=== PATIENT | female | born 1965 | race Caucasian/White ===

== ENCOUNTER → 2016-09-24 | Outpatient (CLI) | payer MEDICARE, OTHER | LOC: OPSV 09:26 | DX: R30.0 Dysuria (principal) | CPT/HCPCS: 87077; 87086; 87186 ==

== ENCOUNTER 2016-10-22 12:47 | Emergency (ER) | payer MEDICARE, OTHER | END 2016-10-22 15:30 | disposition home or self-care (01) | LOC: ER1 12:47 | DX: L89.322 Pressure ulcer of left buttock, stage 2 (principal); L89.312 Pressure ulcer of right buttock, stage 2; E11.9 Type 2 diabetes mellitus without complications; G80.9 Cerebral palsy, unspecified; M41.9 Scoliosis, unspecified; Z99.3 Dependence on wheelchair | CPT/HCPCS: 99283 ==

== ENCOUNTER → 2016-10-23 | Outpatient (CLI) | payer MEDICARE, OTHER | LOC: OPSV 16:00 | DX: L89.152 Pressure ulcer of sacral region, stage 2 (principal); G80.9 Cerebral palsy, unspecified; E11.9 Type 2 diabetes mellitus without complications; G47.33 Obstructive sleep apnea (adult) (pediatric); N20.0 Calculus of kidney; E53.8 Deficiency of other specified B group vitamins; T23.201A Burn of second degree of right hand, unspecified site, initial encounter | CPT/HCPCS: G0463 ==

== ENCOUNTER → 2016-10-27 | Outpatient (CLI) | payer MEDICARE, OTHER | LOC: OPSV 11:55 | DX: M86.9 Osteomyelitis, unspecified (principal) | CPT/HCPCS: G0463 ==

== ENCOUNTER → 2016-10-29 | Outpatient (CLI) | payer MEDICARE, OTHER | LOC: OPSV 12:00 | DX: Z48.00 Encounter for change or removal of nonsurgical wound dressing (principal); L89.152 Pressure ulcer of sacral region, stage 2 | CPT/HCPCS: G0463 ==

== ENCOUNTER → 2016-10-31 | Outpatient (CLI) | payer MEDICARE, OTHER | LOC: OPSV 12:00 | DX: Z48.00 Encounter for change or removal of nonsurgical wound dressing (principal); L89.152 Pressure ulcer of sacral region, stage 2 | CPT/HCPCS: G0463 ==

== ENCOUNTER → 2016-11-03 | Outpatient (CLI) | payer MEDICARE, OTHER | LOC: OPSV 11:59 | DX: L89.152 Pressure ulcer of sacral region, stage 2 (principal) | CPT/HCPCS: G0463 ==

== ENCOUNTER → 2016-11-05 | Outpatient (CLI) | payer MEDICARE, OTHER | LOC: OPSV 11:13 | DX: L89.152 Pressure ulcer of sacral region, stage 2 (principal); G80.9 Cerebral palsy, unspecified; G47.33 Obstructive sleep apnea (adult) (pediatric); N20.0 Calculus of kidney; E53.8 Deficiency of other specified B group vitamins; M81.0 Age-related osteoporosis without current pathological fracture; T23.201A Burn of second degree of right hand, unspecified site, initial encounter | CPT/HCPCS: G0463 ==

== ENCOUNTER → 2016-11-07 | Outpatient (CLI) | payer MEDICARE, OTHER ==
[2016-11-07 10:01] LABS: RED BLOOD COUNT 5.11 M/UL (4.00-5.10); WHITE BLOOD COUNT 5.4 K/UL (4.5-11.0)
[2016-11-07 10:27] LABS: BUN/CREATININE RATIO 32 (0-10)
== END ==
LOC: OPSV 08:24
PROVIDERS: Nurse Practitioner Primary Care
DX: M81.0 Age-related osteoporosis without current pathological fracture (principal); E11.9 Type 2 diabetes mellitus without complications
CPT/HCPCS: 36415; 80053; 80061; 83036; 84443; 85025; G0463

== ENCOUNTER → 2016-11-10 | Outpatient (CLI) | payer MEDICARE, OTHER | LOC: OPSV 11:48 | DX: Z48.00 Encounter for change or removal of nonsurgical wound dressing (principal); L89.152 Pressure ulcer of sacral region, stage 2 | CPT/HCPCS: G0463 ==

== ENCOUNTER → 2016-11-12 | Outpatient (CLI) | payer MEDICARE, OTHER | LOC: OPSV 12:00 | DX: L89.152 Pressure ulcer of sacral region, stage 2 (principal); G80.9 Cerebral palsy, unspecified; E11.9 Type 2 diabetes mellitus without complications; J45.909 Unspecified asthma, uncomplicated; R32 Unspecified urinary incontinence; G47.33 Obstructive sleep apnea (adult) (pediatric); E53.8 Deficiency of other specified B group vitamins; M81.0 Age-related osteoporosis without current pathological fracture; T23.201A Burn of second degree of right hand, unspecified site, initial encounter | CPT/HCPCS: G0463 ==

== ENCOUNTER → 2016-11-14 | Outpatient (CLI) | payer MEDICARE, OTHER | LOC: OPSV 12:00 | DX: L89.152 Pressure ulcer of sacral region, stage 2 (principal) | CPT/HCPCS: G0463 ==

== ENCOUNTER → 2016-11-17 | Outpatient (CLI) | payer MEDICARE, OTHER | LOC: OPSV 12:00 | DX: B38.0 Acute pulmonary coccidioidomycosis (principal) | CPT/HCPCS: 87077; 87086; 87186; G0463 ==

== ENCOUNTER 2016-12-01 11:35 | Emergency (ER) | payer MEDICARE, OTHER ==
[2016-12-01 13:21] LABS: RED BLOOD COUNT 5.43 M/UL (4.00-5.10); WHITE BLOOD COUNT 12.4 K/UL (4.5-11.0)
[2016-12-01 13:52] LABS: BUN/CREATININE RATIO 34 (0-10)
== END 2016-12-01 17:18 | disposition home or self-care (01) ==
LOC: ER1 11:35
PROVIDERS: Physician Assistant
DX: N39.0 Urinary tract infection, site not specified (principal); N20.0 Calculus of kidney; E11.9 Type 2 diabetes mellitus without complications; E78.00 Pure hypercholesterolemia, unspecified; G80.9 Cerebral palsy, unspecified; Z88.2 Allergy status to sulfonamides; Z88.6 Allergy status to analgesic agent; Z88.8 Allergy status to other drugs, medicaments and biological substances; Z79.899 Other long term (current) drug therapy; Z79.84 Long term (current) use of oral hypoglycemic drugs
CPT/HCPCS: 36415; 71010; 80053; 81001; 82550; 82553; 82962; 83690; 83874; 84484; 85025; 93005; 96361; 96374; 96375; 96376; 99284; J2270; J2405

== ENCOUNTER 2016-12-02 10:24 | Emergency (ER) | payer MEDICARE, OTHER | END 2016-12-02 14:10 | disposition home or self-care (01) | LOC: ER1 10:24 | DX: L89.302 Pressure ulcer of unspecified buttock, stage 2 (principal); F41.9 Anxiety disorder, unspecified; F32.9 Major depressive disorder, single episode, unspecified; K21.9 Gastro-esophageal reflux disease without esophagitis; E11.9 Type 2 diabetes mellitus without complications; Z88.2 Allergy status to sulfonamides; Z88.6 Allergy status to analgesic agent; Z88.8 Allergy status to other drugs, medicaments and biological substances; Z79.899 Other long term (current) drug therapy; Z79.84 Long term (current) use of oral hypoglycemic drugs; Z79.82 Long term (current) use of aspirin | CPT/HCPCS: 99282 ==

== ENCOUNTER → 2016-12-04 | Outpatient (CLI) | payer MEDICARE, OTHER | LOC: OPSV 14:00 | DX: L89.152 Pressure ulcer of sacral region, stage 2 (principal); E11.9 Type 2 diabetes mellitus without complications; G80.9 Cerebral palsy, unspecified; J45.909 Unspecified asthma, uncomplicated; G47.33 Obstructive sleep apnea (adult) (pediatric); N20.0 Calculus of kidney; M81.0 Age-related osteoporosis without current pathological fracture; E55.9 Vitamin D deficiency, unspecified | CPT/HCPCS: G0463 ==

== ENCOUNTER → 2016-12-08 | Outpatient (CLI) | payer MEDICARE, OTHER | LOC: OPSV 12:00 | DX: L89.152 Pressure ulcer of sacral region, stage 2 (principal); E11.9 Type 2 diabetes mellitus without complications; J45.909 Unspecified asthma, uncomplicated; T23.201A Burn of second degree of right hand, unspecified site, initial encounter; E55.9 Vitamin D deficiency, unspecified | CPT/HCPCS: G0463 ==

== ENCOUNTER → 2016-12-10 | Outpatient (CLI) | payer MEDICARE, OTHER | LOC: OPSV 12:00 | DX: L89.152 Pressure ulcer of sacral region, stage 2 (principal) | CPT/HCPCS: G0463 ==

== ENCOUNTER → 2016-12-12 | Outpatient (CLI) | payer MEDICARE, OTHER | LOC: OPSV 09:00 | DX: L89.152 Pressure ulcer of sacral region, stage 2 (principal) | CPT/HCPCS: G0463 ==

== ENCOUNTER → 2016-12-15 | Outpatient (CLI) | payer MEDICARE, OTHER | LOC: OPSV 09:00 | DX: L89.152 Pressure ulcer of sacral region, stage 2 (principal) | CPT/HCPCS: G0463 ==

== ENCOUNTER → 2016-12-17 | Outpatient (CLI) | payer MEDICARE, OTHER | LOC: OPSV 11:51 | DX: L89.152 Pressure ulcer of sacral region, stage 2 (principal) | CPT/HCPCS: G0463 ==

== ENCOUNTER → 2017-01-12 | Outpatient (CLI) | payer MEDICARE, OTHER | LOC: OPSV 01-09 12:00 | DX: Z48.00 Encounter for change or removal of nonsurgical wound dressing (principal); L89.152 Pressure ulcer of sacral region, stage 2 | CPT/HCPCS: G0463 ==

== ENCOUNTER → 2017-01-14 | Outpatient (CLI) | payer MEDICARE, OTHER | LOC: OPSV 12:00 | DX: L89.152 Pressure ulcer of sacral region, stage 2 (principal); G80.9 Cerebral palsy, unspecified; E11.9 Type 2 diabetes mellitus without complications; J45.909 Unspecified asthma, uncomplicated; G47.33 Obstructive sleep apnea (adult) (pediatric); N20.0 Calculus of kidney; E53.8 Deficiency of other specified B group vitamins; M81.0 Age-related osteoporosis without current pathological fracture; T23.201A Burn of second degree of right hand, unspecified site, initial encounter; E55.9 Vitamin D deficiency, unspecified | CPT/HCPCS: G0463 ==

== ENCOUNTER → 2017-03-30 | Outpatient (CLI) | payer MEDICARE, OTHER | LOC: OPSV 09:00 | DX: N20.0 Calculus of kidney (principal); L89.152 Pressure ulcer of sacral region, stage 2; E11.9 Type 2 diabetes mellitus without complications; J45.909 Unspecified asthma, uncomplicated; G47.33 Obstructive sleep apnea (adult) (pediatric); E53.8 Deficiency of other specified B group vitamins; M81.0 Age-related osteoporosis without current pathological fracture; T23.201A Burn of second degree of right hand, unspecified site, initial encounter; E55.9 Vitamin D deficiency, unspecified | CPT/HCPCS: G0463 ==

== ENCOUNTER → 2017-04-01 | Outpatient (CLI) | payer MEDICARE, OTHER | LOC: OPSV 12:00 | DX: L89.152 Pressure ulcer of sacral region, stage 2 (principal); G80.9 Cerebral palsy, unspecified; E11.9 Type 2 diabetes mellitus without complications; J45.909 Unspecified asthma, uncomplicated; R32 Unspecified urinary incontinence; G47.33 Obstructive sleep apnea (adult) (pediatric); N20.0 Calculus of kidney; M81.0 Age-related osteoporosis without current pathological fracture; T23.201A Burn of second degree of right hand, unspecified site, initial encounter; E55.9 Vitamin D deficiency, unspecified | CPT/HCPCS: G0463 ==

== ENCOUNTER → 2017-04-03 | Outpatient (CLI) | payer MEDICARE, OTHER | LOC: OPSV 12:00 | DX: L89.152 Pressure ulcer of sacral region, stage 2 (principal); G80.9 Cerebral palsy, unspecified; E11.9 Type 2 diabetes mellitus without complications; J45.909 Unspecified asthma, uncomplicated; R32 Unspecified urinary incontinence; G47.33 Obstructive sleep apnea (adult) (pediatric); N20.0 Calculus of kidney; E53.8 Deficiency of other specified B group vitamins; M81.0 Age-related osteoporosis without current pathological fracture; E55.9 Vitamin D deficiency, unspecified; T23.201A Burn of second degree of right hand, unspecified site, initial encounter | CPT/HCPCS: G0463 ==

== ENCOUNTER → 2020-07-27 | Outpatient (CLI) | payer MEDICARE, OTHER ==
[~2020-07-27] VITALS: Ht 152.4 cm; Wt 108.0 kg
[~2020-07-27] MED LIST: ADVAIR 250-501 EACH INH; ALPRAZOLAM0.25 MG PO; BACLOFEN20 MG PO; CALMOSEPTINE OI71 GM TP; CEFUROXIME250 MG PO; CELEXA20 MG PO; CIPRO500 MG PO; CLARITIN10 MG PO; COLACE100 MG PO; CYCLOBENZAPRINE5 MG PO; DEXILANT60 MG PO; ECOTRIN81 MG PO; ELIQUIS5 MG PO; EVENITY105 MG/1.1 SQ; FLAGYL500 MG PO; FLEXERIL 10 MG10 MG PO; FLOMAX0.4 MG PO; FLONASE 0.05% N16 GM; GLIPIZIDE ER2.5 MG PO; IMITREX25 MG PO; INDAPAMIDE PO; JANUVIA100 MG PO; JANUVIA50 MG PO; KEFLEX500 MG PO; LEVOFLOXACIN500 MG PO; LIPITOR TAB 2020 MG PO; LOTRIMIN AF90 GM TP; MACROBID 100 M100 MG PO; MAPAP325 MG PO; METFORMIN HCL1000 M1 PO; MIRALAX17 GM PO; MOBIC15 MG PO; MYCOSTATIN CREA15 GM TOP; NASONEX; NASONEX SPRAY 117 GM; NYAMYC60 GM TP; NYSTATIN100000 UNI PO; OMNICEF 300 MG300 MG PO; PRADAXA150 MG PO; PROBIOTIC1 EAC3 PO; PROLIA INJ60 MG/1 ML SC; REMERON15 MG PO; SINGULAIR10 MG PO; TAB-A-VITE1 EACH PO; TRICOR145 MG PO; ULTRAVATE50 GM TP; UROCIT-K10 MEQ PO; VENTOLIN HFA 66.7 GM INH; VESICARE10 MG PO; VITAMIN B COMP1 EACH PO; VITAMIN D32000 UNI1 PO; ZANTAC 150 MG150 MG PO; [UNRECOGNIZED DRUG - OTHER]
== END ==
LOC: OPSV 11:00
DX: G80.9 Cerebral palsy, unspecified (principal); R32 Unspecified urinary incontinence; G43.909 Migraine, unspecified, not intractable, without status migrainosus; N20.0 Calculus of kidney; E53.8 Deficiency of other specified B group vitamins; E55.9 Vitamin D deficiency, unspecified; E78.5 Hyperlipidemia, unspecified; F79 Unspecified intellectual disabilities; E11.9 Type 2 diabetes mellitus without complications; F41.1 Generalized anxiety disorder; K21.9 Gastro-esophageal reflux disease without esophagitis; R80.9 Proteinuria, unspecified; M62.3 Immobility syndrome (paraplegic); M41.9 Scoliosis, unspecified; M81.0 Age-related osteoporosis without current pathological fracture; N39.0 Urinary tract infection, site not specified; L89.151 Pressure ulcer of sacral region, stage 1; L89.152 Pressure ulcer of sacral region, stage 2; J45.909 Unspecified asthma, uncomplicated
CPT/HCPCS: 96372; J3111

== ENCOUNTER → 2020-08-27 | Outpatient (CLI) | payer MEDICARE, OTHER ==
[~2020-08-27] VITALS: Ht 152.4 cm; Wt 108.0 kg
== END ==
LOC: OPSV 11:00
DX: G80.9 Cerebral palsy, unspecified (principal); J45.909 Unspecified asthma, uncomplicated; R32 Unspecified urinary incontinence; N20.0 Calculus of kidney; E53.8 Deficiency of other specified B group vitamins; M81.0 Age-related osteoporosis without current pathological fracture; E55.9 Vitamin D deficiency, unspecified; E11.9 Type 2 diabetes mellitus without complications; J30.9 Allergic rhinitis, unspecified; M62.3 Immobility syndrome (paraplegic); F79 Unspecified intellectual disabilities; L89.152 Pressure ulcer of sacral region, stage 2; L89.151 Pressure ulcer of sacral region, stage 1; N39.0 Urinary tract infection, site not specified; R25.2 Cramp and spasm; F41.1 Generalized anxiety disorder; K21.9 Gastro-esophageal reflux disease without esophagitis; E78.5 Hyperlipidemia, unspecified; M41.9 Scoliosis, unspecified; G43.909 Migraine, unspecified, not intractable, without status migrainosus; R80.9 Proteinuria, unspecified
CPT/HCPCS: 96372; J3111

== ENCOUNTER → 2020-09-24 | Outpatient (CLI) | payer MEDICARE, OTHER ==
[~2020-09-24] VITALS: Ht 152.4 cm; Wt 108.0 kg
== END ==
LOC: OPSV 10:26
DX: N39.0 Urinary tract infection, site not specified (principal); M81.0 Age-related osteoporosis without current pathological fracture; G80.9 Cerebral palsy, unspecified; J45.909 Unspecified asthma, uncomplicated; E55.9 Vitamin D deficiency, unspecified; F41.1 Generalized anxiety disorder; K21.9 Gastro-esophageal reflux disease without esophagitis; E78.5 Hyperlipidemia, unspecified; G43.909 Migraine, unspecified, not intractable, without status migrainosus; E11.9 Type 2 diabetes mellitus without complications; Z79.84 Long term (current) use of oral hypoglycemic drugs
CPT/HCPCS: 81001; 96372; J3111

== ENCOUNTER → 2020-10-19 | Outpatient (CLI) | payer MEDICARE, OTHER ==
[2020-10-23 10:15] LABS: AMPHETAMINES, URINE Negative ng/mL (Cutoff=1000); BARBITURATE Negative ng/mL (Cutoff=200); BENZODIAZEPINES Negative ng/mL (Cutoff=100); BENZODIAZEPINES See Final Results ng/mL (Cutoff=200); CANNABINOIDS Negative ng/mL (Cutoff=20); COCAINE (METABOLITE) Negative ng/mL (Cutoff=300); CREATININE 59.4 mg/dL (20.0-300.0); MEPERIDINE Negative ng/mL (Cutoff=200); METHADONE Negative ng/mL (Cutoff=300); OPIATES Negative ng/mL (Cutoff=300); PHENCYCLIDINE Negative ng/mL (Cutoff=25); PROPOXYPHENE Negative ng/mL (Cutoff=300)
== END ==
LOC: EROP 08:40
DX: Z51.81 Encounter for therapeutic drug level monitoring (principal); F41.9 Anxiety disorder, unspecified; N39.0 Urinary tract infection, site not specified; Z79.899 Other long term (current) drug therapy
CPT/HCPCS: 80307

== ENCOUNTER → 2020-10-25 | Outpatient (CLI) | payer MEDICARE, OTHER | LOC: OPSV 10:30 | DX: M81.0 Age-related osteoporosis without current pathological fracture (principal); G80.9 Cerebral palsy, unspecified; J45.909 Unspecified asthma, uncomplicated; R32 Unspecified urinary incontinence; N20.0 Calculus of kidney; E53.8 Deficiency of other specified B group vitamins; E55.9 Vitamin D deficiency, unspecified; E11.9 Type 2 diabetes mellitus without complications; J30.9 Allergic rhinitis, unspecified; M62.3 Immobility syndrome (paraplegic); F79 Unspecified intellectual disabilities; L89.151 Pressure ulcer of sacral region, stage 1; L89.152 Pressure ulcer of sacral region, stage 2; N39.0 Urinary tract infection, site not specified; R25.2 Cramp and spasm; F41.1 Generalized anxiety disorder | CPT/HCPCS: 96372; J3111 ==

== ENCOUNTER → 2020-11-22 | Outpatient (CLI) | payer MEDICARE, OTHER | LOC: OPSV 11:00 | DX: M81.0 Age-related osteoporosis without current pathological fracture (principal); J45.909 Unspecified asthma, uncomplicated; E11.9 Type 2 diabetes mellitus without complications; E55.9 Vitamin D deficiency, unspecified; M62.3 Immobility syndrome (paraplegic); F79 Unspecified intellectual disabilities; F41.1 Generalized anxiety disorder | CPT/HCPCS: 96372; J3111 ==

== ENCOUNTER → 2020-12-25 | Outpatient (CLI) | payer MEDICARE, OTHER ==
[~2020-12-25] VITALS: Ht 152.4 cm; Wt 108.0 kg
== END ==
LOC: OPSV 11:00
DX: G80.9 Cerebral palsy, unspecified (principal); J45.909 Unspecified asthma, uncomplicated; R32 Unspecified urinary incontinence; G47.33 Obstructive sleep apnea (adult) (pediatric); N20.0 Calculus of kidney; E53.8 Deficiency of other specified B group vitamins; M81.0 Age-related osteoporosis without current pathological fracture; E55.9 Vitamin D deficiency, unspecified; E11.9 Type 2 diabetes mellitus without complications; M62.3 Immobility syndrome (paraplegic); F79 Unspecified intellectual disabilities; L89.152 Pressure ulcer of sacral region, stage 2; N39.0 Urinary tract infection, site not specified; F41.1 Generalized anxiety disorder
CPT/HCPCS: 96372; J3111

== ENCOUNTER → 2021-02-14 | Outpatient (CLI) | payer MEDICARE, OTHER ==
[~2021-02-14] VITALS: Ht 152.4 cm; Wt 108.0 kg
== END | disposition home or self-care (01) ==
LOC: OPSV 11:58
DX: M81.0 Age-related osteoporosis without current pathological fracture (principal)
CPT/HCPCS: 96372; J3111

== ENCOUNTER → 2021-03-14 | Outpatient (CLI) | payer MEDICARE, OTHER ==
[~2021-03-14] VITALS: Ht 152.4 cm; Wt 108.0 kg
== END ==
LOC: OPSV 12:00
DX: G80.9 Cerebral palsy, unspecified (principal); J45.909 Unspecified asthma, uncomplicated; E11.9 Type 2 diabetes mellitus without complications; R32 Unspecified urinary incontinence; F79 Unspecified intellectual disabilities; N20.0 Calculus of kidney; N81.0 Urethrocele; G47.33 Obstructive sleep apnea (adult) (pediatric); K21.9 Gastro-esophageal reflux disease without esophagitis; E78.5 Hyperlipidemia, unspecified; M41.9 Scoliosis, unspecified; G43.909 Migraine, unspecified, not intractable, without status migrainosus
CPT/HCPCS: 96372; J3111

== ENCOUNTER → 2021-03-26 | Outpatient (CLI) | payer MEDICARE, OTHER ==
[2021-03-26 09:45] LABS: HEMOGLOBIN 13.1 gm/dl (12.3-15.3); RED BLOOD COUNT 5.13 M/UL (4.00-5.10); WHITE BLOOD COUNT 6.7 K/UL (4.5-11.0)
[2021-03-26 10:01] LABS: BUN/CREATININE RATIO 33 (0-10)
== END ==
LOC: LAB 08:49
PROVIDERS: Nurse Practitioner Primary Care
DX: E55.9 Vitamin D deficiency, unspecified (principal); G43.909 Migraine, unspecified, not intractable, without status migrainosus; R80.9 Proteinuria, unspecified; K59.00 Constipation, unspecified; E78.5 Hyperlipidemia, unspecified; E11.9 Type 2 diabetes mellitus without complications; I10 Essential (primary) hypertension; D51.0 Vitamin B12 deficiency anemia due to intrinsic factor deficiency
CPT/HCPCS: 36415; 80053; 80061; 82043; 82607; 82746; 83036; 83735; 85025

== ENCOUNTER → 2021-07-24 | Outpatient (CLI) | payer MEDICARE, OTHER | LOC: US 13:16 | DX: R92.8 Other abnormal and inconclusive findings on diagnostic imaging of breast (principal); E11.9 Type 2 diabetes mellitus without complications; G80.9 Cerebral palsy, unspecified | CPT/HCPCS: 76641 ==

== ENCOUNTER → 2021-10-17 | Outpatient (CLI) | payer MEDICARE, OTHER ==
[2021-10-17 10:52] LABS: BUN/CREATININE RATIO 29 (0-10)
== END ==
LOC: LAB 09:19
PROVIDERS: Registered Nurse Administrator
DX: E11.9 Type 2 diabetes mellitus without complications (principal); E55.9 Vitamin D deficiency, unspecified; N39.0 Urinary tract infection, site not specified; E78.5 Hyperlipidemia, unspecified; R80.9 Proteinuria, unspecified; Z79.899 Other long term (current) drug therapy
CPT/HCPCS: 36415; 80053; 80061; 83036

== ENCOUNTER → 2022-03-21 | Outpatient (CLI) | payer MEDICARE, OTHER ==
[2022-03-21 10:24] LABS: HEMOGLOBIN 14.3 gm/dl (12.3-15.3); RED BLOOD COUNT 5.2 M/UL (4.00-5.10); WHITE BLOOD COUNT 7.6 K/UL (4.5-11.0)
[2022-03-21 10:44] LABS: BUN/CREATININE RATIO 38 (0-10)
== END ==
LOC: LAB 09:41
PROVIDERS: Nurse Practitioner Primary Care
DX: E78.5 Hyperlipidemia, unspecified (principal); E11.9 Type 2 diabetes mellitus without complications; E55.9 Vitamin D deficiency, unspecified; K21.9 Gastro-esophageal reflux disease without esophagitis; R80.9 Proteinuria, unspecified; K14.6 Glossodynia
CPT/HCPCS: 36415; 80053; 80061; 83036; 83735; 84443; 85025